=== PATIENT | female | born 1935 | race Caucasian/White ===

== ENCOUNTER 2018-02-23 12:12 | Observation (INO) ==
[2018-02-23 13:26] LABS: Basophils # 0.1 10*3/uL (0.0-0.2); Basophils % 0.8 % (0.0-0.8); Eosinophils # 0.2 10*3/uL (0.0-0.87); Eosinophils % 2.2 % (0.00-10.9); Hematocrit 36.3 VOL% (35.7-47.0); Immature Granulocytes % 0.6 %; Immature Granulocytes Absolute 0.06 #; Lymphocytes # 1.5 10*3/uL (1.4-4.0); Mean Corpuscular HGB Conc 33.1 GM/DL (32-36); Mean Corpuscular Hemoglobin 32 PG (27-34); Mean Corpuscular Volume 95.5 FL (87-102); Mean Platelet Volume 9.5 FL (9.6-12.0); Monocytes # 0.9 10*3/uL (0.11-0.8); Monocytes % 8.7 % (1.7-12.7); Neutrophils # 7.6 10*3/uL (1.4-7.4); Neutrophils % 73.7 % (38.7-73.9); Platelet Count 245 T/CUMM (130-400); Red Cell Distribution Width 13.2 % (9.3-17.3); White Blood Count 10.3 T/CUMM (4-12)
[2018-02-23 13:48] LABS: Alanine Aminotransferase 13 U/L (13-56); Albumin 3.3 G/DL (3.4-5.0); Alkaline Phosphatase 73 U/L (45-117); Aspartate Amino Transferase 15 U/L (0-37); Bilirubin,Total < 0.39 MG/DL (0.2-1.0); Blood Urea Nitrogen 17 MG/DL (7-18); Calcium 8.8 MG/DL (8.5-10.1); Glucose 124 MG/DL (74-106); Osmolality,Calculated 279.5 MOS/KG (273-304); Potassium 4.6 MMOL/L (3.5-5.1); Sodium 139 MMOL/L (136-145)
[2018-02-23 13:49] LABS: Troponin I Only 0.147 NG/ML (0.00-0.045)
[2018-02-23] MEDS ORDERED: ACETAMINOPHEN 325 MG TABLET PO PRN (15:06)
[2018-02-23] MEDS ORDERED: ONDANSETRON 4 MG/2 ML VIAL IV PRN (15:06)
[2018-02-23] MEDS ORDERED: ESCITALOPRAM 10 MG TABLET PO SCH (21:00)
[2018-02-23] MEDS ORDERED: clonazePAM 0.5 MG TABLET PO SCH (21:00)
[2018-02-23] MEDS: NIFEdipine 10 MG CAPSULE PO SCH (22:32)
[2018-02-23 23:57] LABS: Apearance,Urine CLEAR (Clear); Bacteria,Urine Occasional /HPF (Few); Bilirubin,Urine Negative (Negative); Blood, Urine Negative (Negative); Glucose,Urine (UA) Negative (Negative); Ketones,Urine Negative (Negative); Nitrite,Urine Negative (Negative); Protein,Urine Negative; RBC,Urine 1 /HPF (0-4); Urine Color Colorless (Yellow); Urine Specific Gravity 1.003 (1.001-1.035); Urine Urobilinogen < 2.0 EU/DL (0.2-1.0); WBC,Urine 3 /HPF (0-6)
[2018-02-24 01:24] LABS: Calcium 9.4 MG/DL (8.5-10.1); Osmolality,Calculated 281.4 MOS/KG (273-304); Potassium 3.7 MMOL/L (3.5-5.1)
[2018-02-24 01:31] LABS: Basophils # 0.1 10*3/uL (0.0-0.2); Basophils % 1.2 % (0.0-0.8); Eosinophils # 0.3 10*3/uL (0.0-0.87); Eosinophils % 3.1 % (0.00-10.9); Hematocrit 38.7 VOL% (35.7-47.0); Hemoglobin 13.1 GM/DL (12.0-16.0); Immature Granulocytes % 0.6 %; Immature Granulocytes Absolute 0.05 #; Lymphocytes # 2.3 10*3/uL (1.4-4.0); Lymphocytes % 28.1 % (21.3-54.2); Mean Corpuscular HGB Conc 33.9 GM/DL (32-36); Mean Corpuscular Hemoglobin 32 PG (27-34); Mean Corpuscular Volume 94.4 FL (87-102); Mean Platelet Volume 9.4 FL (9.6-12.0); Monocytes # 1.2 10*3/uL (0.11-0.8); Monocytes % 15.3 % (1.7-12.7); Neutrophils # 4.2 10*3/uL (1.4-7.4); Neutrophils % 51.7 % (38.7-73.9); Platelet Count 259 T/CUMM (130-400); Troponin I Only 0.135 NG/ML (0.00-0.045); White Blood Count 8.1 T/CUMM (4-12)
[2018-02-24] MEDS: NIFEdipine 10 MG CAPSULE PO SCH (05:46)
[2018-02-24] MEDS ORDERED: PANTOPRAZOLE 40 MG TABLET PO SCH (09:00)
[2018-02-24] MEDS ORDERED: CARVEDILOL 12.5 MG TABLET PO SCH (09:00)
[2018-02-24] MEDS: OLMESARTAN 20 MG TABLET PO SCH ×2 (09:43)
[2018-02-24 13:58] VITALS: BP 174/74
== END 2018-02-24 16:08 | disposition home or self-care (01) ==
LOC: EDUNIT# → EDBD → N.ED 12:12 → N.EDINP 12:12 → N.TELEN 14:19
PROVIDERS: ADMIT Internal Medicine; ATTEND Internal Medicine

== ENCOUNTER 2018-03-04 10:55 | Inpatient (IN) ==
[~2018-03-04 10:55] MED LIST: DIAZEPAM 5 MG TABLET PO ONE; MAGNESIUM SULF RIDER 2 GM in PREMIX 1 EACH IV PRN; POTASSIUM CHLORIDE RIDER 10 MEQ in PREMIX 1 EACH IV PRN; diphenhydrAMINE CAP 25 MG CAPSULE PO ONE
[2018-03-04] MEDS ORDERED: DIAZEPAM 5 MG TABLET ONE (12:50)
[2018-03-04] MEDS ORDERED: diphenhydrAMINE CAP 25 MG CAPSULE ONE (12:51)
[2018-03-04] MEDS: SODIUM CHLORIDE 0.9% 1,000 ML IV SCH (12:54)
[2018-03-04] MEDS ORDERED: HEPARIN/NACL 0.9% 2 UNITS/ML 1,000 ML IV ONE (12:59)
[2018-03-04] MEDS ORDERED: LIDOCAINE 1% 20 ML VIAL ONE (12:59)
[2018-03-04] MEDS ORDERED: MIDAZOLAM 2 MG/2 ML VIAL ONE ×2 (12:59→21:06)
[2018-03-04] MEDS ORDERED: NITROGLYCERIN DRIP 50 MG/250 ML BOTTLE IV ONE (12:59)
[2018-03-04] MEDS ORDERED: HYDROmorphone 2 MG/1 ML VIAL ONE (12:59)
[2018-03-04] MEDS ORDERED: VERAPAMIL 5 MG/2 ML VIAL ONE (12:59)
[2018-03-04] MEDS ORDERED: ENOXAPARIN 30 MG/0.3 ML SYRINGE ONE (13:47)
[2018-03-04] MEDS ORDERED: BIVALIRUDIN 250 MG VIAL IV ONE (14:06)
[2018-03-04] MEDS ORDERED: TICAGRELOR 90 MG TABLET ONE (14:07)
[2018-03-04] MEDS ORDERED: LABETALOL 100 MG/20 ML VIAL IV ONE (14:15)
[2018-03-04] MEDS ORDERED: ESCITALOPRAM 10 MG TABLET PO PRN (14:37)
[2018-03-04] MEDS ORDERED: SODIUM CHLORIDE 0.9% 1,000 ML IV SCH (15:00)
[2018-03-04] MEDS ORDERED: cloNIDine 0.1 MG TABLET PO PRN (16:24)
[2018-03-04] MEDS ORDERED: SODIUM CHLORIDE 0.9% 250 ML IV ONE (20:57)
[2018-03-04] MEDS ORDERED: fentaNYL 100 MCG/2 ML VIAL IV ONE ×2 (20:59→21:20)
[2018-03-04] MEDS ORDERED: TICAGRELOR 90 MG TABLET PO SCH (21:00)
[2018-03-04] MEDS ORDERED: fentaNYL 100 MCG/2 ML VIAL ONE (21:00)
[2018-03-04 21:07] LABS: Basophils # 0.1 10*3/uL (0.0-0.2); Basophils % 1.1 % (0.0-0.8); Eosinophils # 0.2 10*3/uL (0.0-0.87); Eosinophils % 3.2 % (0.00-10.9); Hematocrit 34.5 VOL% (35.7-47.0); Hemoglobin 11.6 GM/DL (12.0-16.0); Immature Granulocytes % 0.4 %; Immature Granulocytes Absolute 0.03 #; Lymphocytes # 2.3 10*3/uL (1.4-4.0); Lymphocytes % 30.2 % (21.3-54.2); Mean Corpuscular HGB Conc 33.6 GM/DL (32-36); Mean Corpuscular Hemoglobin 32 PG (27-34); Mean Corpuscular Volume 96.1 FL (87-102); Mean Platelet Volume 9.7 FL (9.6-12.0); Monocytes # 1.2 10*3/uL (0.11-0.8); Monocytes % 15.4 % (1.7-12.7); Neutrophils # 3.7 10*3/uL (1.4-7.4); Neutrophils % 49.7 % (38.7-73.9); Platelet Count 256 T/CUMM (130-400); Red Blood Count 3.59 MC/CUMM (3.8-5.5); Red Cell Distribution Width 12.9 % (9.3-17.3); White Blood Count 7.5 T/CUMM (4-12)
[2018-03-04 21:15] LABS: INR 1.1; PT Patient Result 11.1 SECS; Partial Thromboplastin Time 27.3 SECS (0-40)
[2018-03-04] MEDS ORDERED: ceFAZolin 1,000 MG in SYRINGE 1 EACH IV ONE (21:24)
[2018-03-04 21:28] LABS: Albumin 3.1 G/DL (3.4-5.0); Bilirubin,Total 0.5 MG/DL (0.2-1.0); Calcium 8.9 MG/DL (8.5-10.1); Osmolality,Calculated 277.5 MOS/KG (273-304); Potassium 4.4 MMOL/L (3.5-5.1); Total Protein 6.7 G/DL (6.4-8.3)
[2018-03-04] MEDS ORDERED: ATROPINE 1 MG/10 ML SYRINGE IV ONE ×2 (21:29→21:33)
[2018-03-04] MEDS ORDERED: MIDAZOLAM 2 MG/2 ML VIAL IV ONE (21:33)
[2018-03-04] MEDS ORDERED: FLUMAZENIL 0.5 MG/5 ML VIAL IV ONE (21:33)
[2018-03-04] MEDS ORDERED: FLUMAZENIL 1 MG/10 ML VIAL IV ONE (21:34)
[2018-03-04] MEDS ORDERED: METOCLOPRAMIDE 10 MG/2 ML VIAL IV ONE (21:54)
[2018-03-04] MEDS ORDERED: FAMOTIDINE 20 MG/2 ML VIAL IV ONE (21:54)
[2018-03-04] MEDS ORDERED: HEPARIN 5,000 UNIT/1 ML VIAL ONE (21:57)
[2018-03-04] MEDS ORDERED: METOCLOPRAMIDE IV ONE (22:30)
[2018-03-04] MEDS ORDERED: FAMOTIDINE IV ONE (22:30)
[2018-03-04] MEDS ORDERED: SODIUM CHLORIDE 0.9% IV ONE (22:30)
[2018-03-04] MEDS ORDERED: ceFAZolin 1,000 MG VIAL ONE (22:44)
[2018-03-04] MEDS ORDERED: SUCCINYLCHOLINE 200 MG/10 ML VIAL ONE (23:34)
[2018-03-04] MEDS ORDERED: ePHEDrine 50 MG/ML AMP ONE (23:34)
[2018-03-04] MEDS ORDERED: ETOMIDATE 40 MG/20 ML VIAL IV ONE (23:34)
[2018-03-04] MEDS ORDERED: ONDANSETRON 4 MG/2 ML VIAL ONE (23:34)
[2018-03-04] MEDS ORDERED: PHENYLEPHRINE 1 MG/10 ML SYRINGE IV ONE (23:34)
[2018-03-05] MEDS: CARVEDILOL 12.5 MG TABLET PO SCH ×3 (01:19→21:12)
[2018-03-05] MEDS: ATORVASTATIN 40 MG TABLET PO SCH ×2 (01:19→21:12)
[2018-03-05 05:18] LABS: Basophils # 0.1 10*3/uL (0.0-0.2); Basophils % 0.8 % (0.0-0.8); Eosinophils # 0.1 10*3/uL (0.0-0.87); Eosinophils % 1.4 % (0.00-10.9); Hematocrit 30.4 VOL% (35.7-47.0); Immature Granulocytes % 0.3 %; Immature Granulocytes Absolute 0.02 #; Lymphocytes # 1.4 10*3/uL (1.4-4.0); Lymphocytes % 18.1 % (21.3-54.2); Mean Corpuscular HGB Conc 32.9 GM/DL (32-36); Mean Corpuscular Hemoglobin 31 PG (27-34); Mean Corpuscular Volume 95.3 FL (87-102); Mean Platelet Volume 9.6 FL (9.6-12.0); Monocytes # 1.2 10*3/uL (0.11-0.8); Monocytes % 14.9 % (1.7-12.7); Neutrophils % 64.5 % (38.7-73.9); Platelet Count 232 T/CUMM (130-400); Red Blood Count 3.19 MC/CUMM (3.8-5.5); Red Cell Distribution Width 13.1 % (9.3-17.3); White Blood Count 7.7 T/CUMM (4-12)
[2018-03-05 05:59] LABS: Blood Urea Nitrogen 17 MG/DL (7-18); Calcium 8.6 MG/DL (8.5-10.1); Glucose 111 MG/DL (74-106); Osmolality,Calculated 279.5 MOS/KG (273-304); Potassium 5.4 MMOL/L (3.5-5.1); Sodium 139 MMOL/L (136-145)
[2018-03-05] MEDS: clonazePAM 0.5 MG TABLET PO SCH (10:53)
[2018-03-05] MEDS: CLOPIDOGREL 75 MG TABLET PO SCH (10:54)
[2018-03-05] MEDS: ASPIRIN EC 81 MG TABLET PO SCH (10:54)
[2018-03-05] MEDS: OLMESARTAN 20 MG TABLET PO SCH (10:54)
[2018-03-05] MEDS: SODIUM CHLORIDE 0.9% 1,000 ML IV SCH (10:57)
[2018-03-05 15:03] LABS: Hematocrit 26.2 VOL% (35.7-47.0); Hemoglobin 8.7 GM/DL (12.0-16.0)
[2018-03-05 23:41] LABS: Basophils % 0.2 % (0.0-0.8); Eosinophils # 0.2 10*3/uL (0.0-0.87); Eosinophils % 1.9 % (0.00-10.9); Hematocrit 24.6 VOL% (35.7-47.0); Hemoglobin 8.2 GM/DL (12.0-16.0); Immature Granulocytes % 0.4 %; Immature Granulocytes Absolute 0.03 #; Lymphocytes # 1.9 10*3/uL (1.4-4.0); Lymphocytes % 23.7 % (21.3-54.2); Mean Corpuscular HGB Conc 33.3 GM/DL (32-36); Mean Corpuscular Hemoglobin 32 PG (27-34); Mean Corpuscular Volume 96.9 FL (87-102); Mean Platelet Volume 9.7 FL (9.6-12.0); Monocytes # 1.2 10*3/uL (0.11-0.8); Monocytes % 14.3 % (1.7-12.7); Neutrophils # 4.8 10*3/uL (1.4-7.4); Neutrophils % 59.5 % (38.7-73.9); Platelet Count 193 T/CUMM (130-400); Red Blood Count 2.54 MC/CUMM (3.8-5.5); Red Cell Distribution Width 13.1 % (9.3-17.3); White Blood Count 8.1 T/CUMM (4-12)
[2018-03-06 00:19] LABS: Alanine Aminotransferase 9 U/L (13-56); Albumin 2.6 G/DL (3.4-5.0); Alkaline Phosphatase 71 U/L (45-117); Aspartate Amino Transferase 21 U/L (0-37); Bilirubin,Total < 0.39 MG/DL (0.2-1.0); Blood Urea Nitrogen 18 MG/DL (7-18); Calcium 8.2 MG/DL (8.5-10.1); Glucose 137 MG/DL (74-106); Osmolality,Calculated 276.8 MOS/KG (273-304); Potassium 4.4 MMOL/L (3.5-5.1); Sodium 137 MMOL/L (136-145); Total Protein 5.2 G/DL (6.4-8.3)
[2018-03-06] MEDS: HEPARIN DRIP 25,000 UNITS/500 ML PREMIX IV SCH (00:42)
[2018-03-06] MEDS: SODIUM CHLORIDE 0.9% 1,000 ML IV SCH ×2 (00:48→09:33)
[2018-03-06 01:24] LABS: PT Patient Result 10.3 SECS
[2018-03-06 05:01] LABS: Calcium 8.5 MG/DL (8.5-10.1); Osmolality,Calculated 279.5 MOS/KG (273-304)
[2018-03-06 05:10] LABS: Basophils % 0.2 % (0.0-0.8); Eosinophils # 0.2 10*3/uL (0.0-0.87); Eosinophils % 2.1 % (0.00-10.9); Hematocrit 23.9 VOL% (35.7-47.0); Hemoglobin 7.8 GM/DL (12.0-16.0); Immature Granulocytes % 0.2 %; Immature Granulocytes Absolute 0.02 #; Lymphocytes # 2.1 10*3/uL (1.4-4.0); Lymphocytes % 25.5 % (21.3-54.2); Mean Corpuscular HGB Conc 32.6 GM/DL (32-36); Mean Corpuscular Hemoglobin 32 PG (27-34); Mean Corpuscular Volume 96.4 FL (87-102); Monocytes # 1.3 10*3/uL (0.11-0.8); Monocytes % 15.8 % (1.7-12.7); Neutrophils # 4.5 10*3/uL (1.4-7.4); Neutrophils % 56.2 % (38.7-73.9); Platelet Count 184 T/CUMM (130-400); Red Blood Count 2.48 MC/CUMM (3.8-5.5); Red Cell Distribution Width 12.9 % (9.3-17.3)
[2018-03-06 06:39] LABS: Band Neutrophils 3 % (0-10); Eosinophils 2 % (0-10); Hypochromasia 1+; Lymphocytes 24 % (20-55); Metamyelocytes 1 %; Platelet Estimate Normal; Segmented Neutrophils 60 % (50-85); Total Cells Counted 100
[2018-03-06] MEDS: clonazePAM 0.5 MG TABLET PO SCH (09:33)
[2018-03-06] MEDS: ASPIRIN EC 81 MG TABLET PO SCH (09:33)
[2018-03-06] MEDS: CLOPIDOGREL 75 MG TABLET PO SCH (09:33)
[2018-03-06] MEDS: CARVEDILOL 12.5 MG TABLET PO SCH ×2 (09:33→21:09)
[2018-03-06] MEDS: OLMESARTAN 20 MG TABLET PO SCH (09:33)
[2018-03-06] MEDS: FERROUS SULFATE 325 MG TABLET PO SCH ×2 (17:37→21:09)
[2018-03-06] MEDS: ASCORBIC ACID 500 MG TABLET PO SCH ×2 (17:39→21:09)
[2018-03-06] MEDS: ATORVASTATIN 40 MG TABLET PO SCH (21:09)
[2018-03-07] MEDS: HEPARIN DRIP 25,000 UNITS/500 ML PREMIX IV SCH ×2 (01:33→08:14)
[2018-03-07] MEDS: SODIUM CHLORIDE 0.9% 1,000 ML IV SCH ×2 (01:34→11:10)
[2018-03-07 04:41] LABS: Basophils % 0.1 % (0.0-0.8); Eosinophils # 0.4 10*3/uL (0.0-0.87); Eosinophils % 4.9 % (0.00-10.9); Hematocrit 22.7 VOL% (35.7-47.0); Hemoglobin 7.4 GM/DL (12.0-16.0); Immature Granulocytes % 0.4 %; Immature Granulocytes Absolute 0.03 #; Lymphocytes % 27.8 % (21.3-54.2); Mean Corpuscular HGB Conc 32.6 GM/DL (32-36); Mean Corpuscular Hemoglobin 32 PG (27-34); Mean Corpuscular Volume 96.6 FL (87-102); Mean Platelet Volume 10.1 FL (9.6-12.0); Monocytes # 1.1 10*3/uL (0.11-0.8); Neutrophils # 3.7 10*3/uL (1.4-7.4); Neutrophils % 51.8 % (38.7-73.9); Platelet Count 204 T/CUMM (130-400); Red Blood Count 2.35 MC/CUMM (3.8-5.5); Red Cell Distribution Width 13.1 % (9.3-17.3); White Blood Count 7.2 T/CUMM (4-12)
[2018-03-07] MEDS: FERROUS SULFATE 325 MG TABLET PO SCH ×3 (10:26→21:07)
[2018-03-07] MEDS: ASCORBIC ACID 500 MG TABLET PO SCH ×2 (10:26→21:07)
[2018-03-07] MEDS: clonazePAM 0.5 MG TABLET PO SCH (10:27)
[2018-03-07] MEDS: OLMESARTAN 20 MG TABLET PO SCH (10:27)
[2018-03-07] MEDS: CLOPIDOGREL 75 MG TABLET PO SCH (10:27)
[2018-03-07] MEDS: ASPIRIN EC 81 MG TABLET PO SCH (10:27)
[2018-03-07] MEDS: CARVEDILOL 12.5 MG TABLET PO SCH ×2 (10:27→21:07)
[2018-03-07] MEDS: ATORVASTATIN 40 MG TABLET PO SCH (21:07)
[2018-03-07 21:28] LABS: Folate 18.3 NG/ML (5.4-24.0)
[2018-03-08 04:42] LABS: Basophils % 0.3 % (0.0-0.8); Eosinophils # 0.6 10*3/uL (0.0-0.87); Eosinophils % 7.1 % (0.00-10.9); Hematocrit 22.5 VOL% (35.7-47.0); Hemoglobin 7.6 GM/DL (12.0-16.0); Immature Granulocytes % 0.1 %; Immature Granulocytes Absolute 0.01 #; Lymphocytes # 2.2 10*3/uL (1.4-4.0); Lymphocytes % 28.1 % (21.3-54.2); Mean Corpuscular HGB Conc 33.8 GM/DL (32-36); Mean Corpuscular Hemoglobin 32 PG (27-34); Mean Corpuscular Volume 95.3 FL (87-102); Mean Platelet Volume 10.6 FL (9.6-12.0); Monocytes % 12.9 % (1.7-12.7); Neutrophils % 51.5 % (38.7-73.9); Platelet Count 205 T/CUMM (130-400); Red Blood Count 2.36 MC/CUMM (3.8-5.5); Red Cell Distribution Width 13.2 % (9.3-17.3); White Blood Count 7.8 T/CUMM (4-12)
[2018-03-08 05:05] LABS: Calcium 8.8 MG/DL (8.5-10.1); Hypochromasia 1+; Platelet Estimate Adequate; Potassium 3.9 MMOL/L (3.5-5.1)
[2018-03-08 05:09] LABS: Risk Ratio 1.9
[2018-03-08] MEDS: ASCORBIC ACID 500 MG TABLET PO SCH ×2 (09:34→21:58)
[2018-03-08] MEDS: clonazePAM 0.5 MG TABLET PO SCH (09:34)
[2018-03-08] MEDS: ASPIRIN EC 81 MG TABLET PO SCH (09:34)
[2018-03-08] MEDS: CLOPIDOGREL 75 MG TABLET PO SCH (09:35)
[2018-03-08] MEDS: CARVEDILOL 12.5 MG TABLET PO SCH ×2 (09:35→21:58)
[2018-03-08] MEDS: FERROUS SULFATE 325 MG TABLET PO SCH ×3 (09:35→21:58)
[2018-03-08] MEDS: OLMESARTAN 20 MG TABLET PO SCH (09:35)
[2018-03-08] MEDS: ATORVASTATIN 40 MG TABLET PO SCH (21:58)
[2018-03-09 04:40] LABS: Basophils % 0.3 % (0.0-0.8); Eosinophils # 0.7 10*3/uL (0.0-0.87); Eosinophils % 7.7 % (0.00-10.9); Hematocrit 22.8 VOL% (35.7-47.0); Hemoglobin 7.5 GM/DL (12.0-16.0); Immature Granulocytes % 0.5 %; Immature Granulocytes Absolute 0.04 #; Lymphocytes # 2.1 10*3/uL (1.4-4.0); Lymphocytes % 23.4 % (21.3-54.2); Mean Corpuscular HGB Conc 32.9 GM/DL (32-36); Mean Corpuscular Hemoglobin 31 PG (27-34); Mean Platelet Volume 9.8 FL (9.6-12.0); Monocytes # 1.3 10*3/uL (0.11-0.8); Monocytes % 14.3 % (1.7-12.7); Neutrophils # 4.7 10*3/uL (1.4-7.4); Neutrophils % 53.8 % (38.7-73.9); Platelet Count 289 T/CUMM (130-400); Red Cell Distribution Width 13.3 % (9.3-17.3); White Blood Count 8.8 T/CUMM (4-12)
[2018-03-09 05:30] LABS: Calcium 8.7 MG/DL (8.5-10.1); Potassium 3.9 MMOL/L (3.5-5.1)
[2018-03-09] MEDS ORDERED: MUPIROCIN 2% OINT 22 GM TUBE TOP SCH (09:00)
[2018-03-09] MEDS: ASCORBIC ACID 500 MG TABLET PO SCH (09:49)
[2018-03-09] MEDS: CARVEDILOL 12.5 MG TABLET PO SCH (09:49)
[2018-03-09] MEDS: clonazePAM 0.5 MG TABLET PO SCH (09:49)
[2018-03-09] MEDS: FERROUS SULFATE 325 MG TABLET PO SCH (09:49)
[2018-03-09] MEDS: CLOPIDOGREL 75 MG TABLET PO SCH (09:49)
[2018-03-09] MEDS: ASPIRIN EC 81 MG TABLET PO SCH (09:50)
[2018-03-09] MEDS: OLMESARTAN 20 MG TABLET PO SCH (09:50)
[2018-03-09 11:41] VITALS: BP 140/62
== END 2018-03-09 14:10 | disposition swing bed (61) | DRG 247 ==
LOC: N.CL 10:55 → N.TELEN 10:55 → N.CL 12:38 → N.TELEN 15:05
PROVIDERS: ADMIT Internal Medicine Cardiovascular Disease; ATTEND Internal Medicine Cardiovascular Disease
PROC: VAVDCFI (2018-03-04 22:25)

== ENCOUNTER 2021-06-14 10:11 | Inpatient (IN) ==
[2021-06-14 12:10] LABS: Albumin 3.6 G/DL (3.4-5.0); Bilirubin,Total 0.6 MG/DL (0.20-1.00); Calcium 9.5 MG/DL (8.5-10.1); Osmolality,Calculated 251.6 MOS/KG (273-304); Potassium 5.3 MMOL/L (3.5-5.1); Total Protein 7.2 G/DL (6.4-8.2)
[2021-06-14] MEDS ORDERED: SODIUM CHLORIDE 0.9% 500 ML IV STA (12:25)
[2021-06-14] MEDS ORDERED: ONDANSETRON 4 MG/2 ML VIAL IV PRN (13:05)
[2021-06-14 14:46] LABS: Thyroid Stimulating Hormone 3.75 uIU/ml (0.358-3.74)
[2021-06-14] MEDS: HEPARIN 5,000 UNIT/1 ML VIAL SUBCUT SCH (15:06)
[2021-06-14 15:25] LABS: Basophils # 0.1 10*3/uL (0.0-0.2); Basophils % 1.2 % (0.0-0.8); Eosinophils # 0.1 10*3/uL (0.0-0.87); Eosinophils % 1.4 % (0.00-10.9); Hematocrit 33.4 VOL% (35.7-47.0); Hemoglobin 11.4 GM/DL (12.0-16.0); Immature Granulocytes % 0.3 %; Immature Granulocytes Absolute 0.02 #; Lymphocytes # 1.3 10*3/uL (1.4-4.0); Lymphocytes % 19.1 % (21.3-54.2); Mean Corpuscular HGB Conc 34.1 GM/DL (32-36); Mean Corpuscular Volume 90.3 FL (87-102); Mean Platelet Volume 8.7 FL (9.6-12.0); Monocytes % 10.9 % (1.7-12.7); Neutrophils % 67.1 % (38.7-73.9); Platelet Count 300 T/CUMM (130-400); Red Cell Distribution Width 13.1 % (9.3-17.3); White Blood Count 6.6 T/CUMM (4-12)
[2021-06-14] MEDS: SODIUM CHLORIDE 0.9% 1,000 ML IV SCH (17:00)
[2021-06-14] MEDS: clonazePAM 0.5 MG TABLET PO SCH (17:56)
[2021-06-15] MEDS: HEPARIN 5,000 UNIT/1 ML VIAL SUBCUT SCH (04:37)
[2021-06-15] MEDS: SODIUM CHLORIDE 0.9% 1,000 ML IV SCH ×2 (04:37→09:35)
[2021-06-15 05:42] LABS: Basophils # 0.1 10*3/uL (0.0-0.2); Basophils % 0.9 % (0.0-0.8); Eosinophils # 0.1 10*3/uL (0.0-0.87); Eosinophils % 1.3 % (0.00-10.9); Hematocrit 35.1 VOL% (35.7-47.0); Hemoglobin 11.7 GM/DL (12.0-16.0); Immature Granulocytes % 0.4 %; Immature Granulocytes Absolute 0.03 #; Lymphocytes # 1.8 10*3/uL (1.4-4.0); Lymphocytes % 21.3 % (21.3-54.2); Mean Corpuscular HGB Conc 33.3 GM/DL (32-36); Mean Corpuscular Volume 91.6 FL (87-102); Mean Platelet Volume 8.9 FL (9.6-12.0); Monocytes % 12.7 % (1.7-12.7); Neutrophils % 63.4 % (38.7-73.9); Platelet Count 317 T/CUMM (130-400); Red Blood Count 3.83 MC/CUMM (3.8-5.5); Red Cell Distribution Width 13.2 % (9.3-17.3); White Blood Count 8.5 T/CUMM (4-12)
[2021-06-15 05:59] LABS: Albumin 3.2 G/DL (3.4-5.0); Bilirubin,Total 1.3 MG/DL (0.20-1.00); Osmolality,Calculated 263.7 MOS/KG (273-304); Potassium 4.6 MMOL/L (3.5-5.1); Total Protein 6.7 G/DL (6.4-8.2)
[2021-06-15] MEDS: clonazePAM 0.5 MG TABLET PO SCH (09:18)
[2021-06-15 12:09] VITALS: BP 141/60
== END 2021-06-15 12:16 | disposition home or self-care (01) | DRG 641 ==
LOC: EDBD → EDUNIT# → N.ED 10:11 → N.EDINP 13:03 → SUATTDRO 13:03 → N.5E 14:49
PROVIDERS: ADMIT Internal Medicine; ATTEND Internal Medicine